=== PATIENT | male | born 1960 ===

== ENCOUNTER 2018-12-23 09:12 | Emergency (ER) | payer OTHER ==
[2018-12-23 09:27] VITALS: RESP 18; O2SAT 97
--- NOTE | 2018-12-23 11:05 | CT ---
PROCEDURE: CT Abdomen and Pelvis without Oral or IV contrast. HISTORY: renal stone COMPARISON: None available TECHNIQUE: Contiguous axial images of the abdomen and pelvis. No oral or IV contrast administered. Coronal and Sagittal reformats generated and reviewed. Radiation dose: Total exam DLP = 945.2 mGy-cm. This CT exam was performed using one or more of the following dose reduction techniques: Automated exposure control, adjustment of the mA and/or kV according to patient size, and/or use of iterative reconstruction technique. FINDINGS: There is limited evaluation of the solid organs without the administration of IV contrast. LOWER THORAX: No visible consolidation, pleural effusion, or pneumothorax. LIVER: Unremarkable unenhanced appearance. GALLBLADDER AND BILE DUCTS: Unremarkable unenhanced appearance. PANCREAS: Unremarkable unenhanced appearance. SPLEEN: 12 mm probable splenule. Otherwise unremarkable unenhanced appearance. ADRENALS: Unremarkable unenhanced appearance. KIDNEYS AND URETERS: 5 mm distal right ureteral calculus with proximal hydroureteronephrosis. No obstructing calculus or hydronephrosis on the left. BLADDER: The urinary bladder appears unremarkable. REPRODUCTIVE: The prostate gland measures approximately 3.2 x 4.4 cm. APPENDIX: The appendix appears within normal limits of caliber. No secondary signs of acute appendicitis. BOWEL: The stomach is nondistended. Lack of oral contrast limits evaluation for bowel pathology. The bowel loops appear within normal limits of caliber without evidence of intestinal obstruction. PERITONEUM: No significant free fluid. No definite free air. LYMPH NODES: No bulky lymphadenopathy identified. VASCULATURE: No significant atherosclerotic calcifications. No aortic aneurysm. BONES: Degenerative changes. OTHER FINDINGS: None. IMPRESSION: 5 mm distal right ureteral calculus with proximal hydroureteronephrosis.
--- NOTE | 2018-12-23 11:25 | C.PDOC ---
History Of Present Illness 58 year old male presents to the ED for evaluation of right flank pain which began around one week ago. Patient states he recently arrived from [place], where he was evaluated for blood in his urine and was told he likely has a kidney stone. Upon arrival to [place], patient was evaluated in [facility] where he was given prescriptions to undergo outpatient labwork and ultrasound. Patient was undergoing labwork in [facility] today, but was complaining of pain so has been sent to the ED for further evaluation. Patient has not yet undergone any imaging. Patient has been managing his pain with Tylenol and a [place]ian medication. Patient denies fever, chills, nausea, vomiting. Time Seen by Provider: 12/23/18 09:33 Chief Complaint (Nursing): Abdominal Pain History Per: Patient History/Exam Limitations: no limitations Onset/Duration Of Symptoms: Days Current Symptoms Are (Timing): Still Present Radiation Of Pain To:: Flank (right) Quality Of Discomfort: "Pain" Associated Symptoms: denies: Fever, Chills, Nausea, Vomiting Recent travel outside of the [place]: Yes Additional History Per: Patient Past Medical History Reviewed: Historical Data, Nursing Documentation, Vital Signs Vital Signs: Last Vital Signs Temp 98 F 12/23/18 09:16 Pulse 67 12/23/18 09:16 Resp 18 12/23/18 09:16 BP 158/83 H 12/23/18 09:16 Pulse Ox 97 12/23/18 09:16 - Medical History PMH: Kidney Stones, Chronic Kidney Disease Surgical History: No Surg Hx Family History: States: Unknown Family Hx - Social History Hx Alcohol Use: No Hx Substance Use: No - Immunization History Hx Tetanus Toxoid Vaccination: No Hx Influenza Vaccination: No Hx Pneumococcal Vaccination: No Review Of Systems Constitutional: Negative for: Fever, Chills, Weakness Eyes: Negative for: Redness ENT: Negative for: Mouth Pain Cardiovascular: Negative for: Chest Pain Respiratory: Negative for: Shortness of Breath Gastrointestinal: Negative for: Nausea, Vomiting Genitourinary: Negative for: Dysuria, Hematuria Musculoskeletal: Positive for: Other (rght flank pain ). Negative for: Back Pain Skin: Negative for: Rash Neurological: Negative for: Weakness, Numbness, Dizziness Physical Exam - Physical Exam Appears: Well, Non-toxic, No Acute Distress Skin: Normal Color, Warm, No Rash Head: Atraumatic, Normacephalic Eye(s): bilateral: Normal Inspection (no scleral icterus), PERRL, EOMI Ear(s): Bilateral: Normal (no drainage ) Nose: Normal Oral Mucosa: Moist Neck: Normal ROM, Supple Chest: Symmetrical Respiratory: No Accessory Muscle Use, Other (normal inspiratory effort ) Gastrointestinal/Abdominal: Soft, Tenderness (right lower quadrant ), No Distention Back: Other (ambulating with steady upright gait) Extremity: Normal ROM Extremity: Bilateral: Atraumatic Neurological/Psych: Oriented x3, Normal Cranial Nerves (grossly intact ) ED Course And Treatment O2 Sat by Pulse Oximetry: 97 (on RA) Pulse Ox Interpretation: Normal Medical Decision Making Medical Decision Making: Progress: CT A/P ordered and reviewed. Toradol IVP and Flomax PO given. CT Abd/pel shows 5mm ureter stone to the right ureter with proximal hydroureter. patient pain is controlled at this time. he will be referred to outpatient follow up and pain management given. Disposition Counseled Patient/Family Regarding: Studies Performed, Diagnosis, Need For Followup - Disposition Referrals: Andrea Ching MD [Staff Provider] - Disposition: HOME/ ROUTINE Disposition Time: 11:38 Condition: STABLE Prescriptions: Hydrocodone/Acetaminophen [Vicodin Es 7.5-300 mg Tablet] 1 each PO TID PRN #60 tablet PRN Reason: Pain, Severe (8-10) Ibuprofen [Motrin Tab] 800 mg PO TID PRN #21 tab PRN Reason: Pain, Moderate (4-7) Tamsulosin HCl [Flomax] 0.4 mg PO DAILY #4 cap.er.24h Instructions: Renal Colic (DC) Forms: [facility] ([place]), General Discharge Instructions - Clinical Impression Clinical Impression: Ureterolithiasis - [place] / 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 - Scribe Statement The provider has reviewed the documentation as recorded by the Scribe (Maribel Sawyer) All medical record entries made by the Scribe were at my direction and personall y dictated by me. I have reviewed the chart and agree that the record accurately reflects my personal performance of the history, physical exam, medical decision making, and the department course for this patient. I have also personally directed, reviewed, and agree with the discharge instructions and disposition.
[2018-12-23 11:47] VITALS: BP 135/85; PULSE 65; TEMP 98
== END 2018-12-23 12:18 | disposition home or self-care (01) ==
LOC: C.ER 09:12
DX: N13.2 Hydronephrosis with renal and ureteral calculous obstruction (principal); Z87.442 Personal history of urinary calculi
CPT/HCPCS: 74176; 96374; 99285; J1885

== ENCOUNTER 2019-01-06 10:04 | Emergency (ER) | payer OTHER, MEDICAID ==
[2019-01-06 10:42] VITALS: RESP 18; O2SAT 98
[2019-01-06] MEDS ORDERED: Dexamethasone 4 mg/1 ml IM STA (11:37)
[2019-01-06] MEDS ORDERED: Lidocaine 5% Patch TD STA (11:37)
[2019-01-06] MEDS ORDERED: Lidocaine 5% Patch TD ONE (12:02)
[2019-01-06] MEDS ORDERED: Dexamethasone 4 mg/1 ml ONE (12:02)
--- NOTE | 2019-01-06 12:08 | C.PDOC ---
History Of Present Illness The patient reports 3 day history of left lower back pain which is described as sharp and achy. Patient describes the pain as non-radiating and worsened with movement. 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 Denies fall, numbness, weakness, abdominal pain, fever, bowel/bladder incontinence. Time Seen by Provider: 01/06/19 11:07 Chief Complaint (Nursing): Back Pain Past Medical History Vital Signs: Last Vital Signs Temp 98.9 F 01/06/19 10:38 Pulse 77 01/06/19 10:38 Resp 18 01/06/19 10:38 BP 152/88 H 01/06/19 10:38 Pulse Ox 98 01/06/19 10:38 - Medical History PMH: Kidney Stones, Chronic Kidney Disease Family History: States: Unknown Family Hx - Social History Hx Alcohol Use: No Hx Substance Use: No - Immunization History Hx Tetanus Toxoid Vaccination: No Hx Influenza Vaccination: No Hx Pneumococcal Vaccination: No Review Of Systems Except As Marked, All Systems Reviewed And Found Negative. Musculoskeletal: Positive for: Back Pain Neurological: Negative for: Weakness, Numbness Physical Exam - Physical Exam Appears: Non-toxic, No Acute Distress Skin: Normal Color, Warm, No Rash Head: Atraumatic, Normacephalic Eye(s): bilateral: Normal Inspection, PERRL, EOMI Oral Mucosa: Moist Neck: Normal ROM, No Midline Cervical Tenderness, No Paracervical Tenderness, Supple Chest: Symmetrical, No Deformity, No Tenderness Cardiovascular: No Friction Rub, No Murmur Respiratory: Normal Breath Sounds, No Rhonchi, No Stridor, No Wheezing Gastrointestinal/Abdominal: Bowel Sounds (active), Soft, No Tenderness, No Guarding, No Rebound Back: Normal Inspection, No CVA Tenderness, No Vertebral Tenderness, Muscle Spasm, Paraspinal Tenderness (paralumbar tenderness) Extremity: Normal ROM, No Tenderness, No Swelling Pulses: Left Dorsalis Pedis: Normal, Right Dorsalis Pedis: Normal Neurological/Psych: Oriented x3, Normal Speech, Normal Motor, Normal Sensation Gait: Steady ED Course And Treatment O2 Sat by Pulse Oximetry: 98 (on Ra) Pulse Ox Interpretation: Normal Medical Decision Making Medical Decision Making: On re-exam, the patient reports improvement of symptoms. Lungs are CTA, heart is RRR, abdomen is soft, non-tender and tolerating PO well. Pt is ambulatory in the ED with steady gait. Follow up with the medical doctor within 1-2 days. Return if worsened. Disposition - Disposition Referrals: [facility] at [facility] [Outside] Dg Bauer MD [Non-Staff] - Disposition: HOME/ ROUTINE Disposition Time: 12:06 Condition: GOOD Additional Instructions: Follow up with the medical doctor within 1-2 days. Return if worsened. Prescriptions: Diazepam [Valium] 2 mg PO TID #21 tab Naproxen [Naprosyn] 500 mg PO BID #20 tab predniSONE [Prednisone] 10 mg PO BID #10 tab Instructions: Low Back Pain (DC) Forms: [facility] (Kyrgyz), Work Excuse - Clinical Impression Clinical Impression: Low back pain
[2019-01-06 12:35] VITALS: BP 144/82; PULSE 68; TEMP 97.9
== END 2019-01-06 12:34 | disposition home or self-care (01) ==
LOC: C.ER 10:04
DX: M54.5 Low back pain (principal)
CPT/HCPCS: 96372; 99284; J1100; J1885